=== PATIENT | male | born 1945 | race Caucasian/White ===

== ENCOUNTER → 2017-09-07 | Outpatient (CLI) | payer MEDICARE, OTHER ==
--- NOTE | 2017-09-07 10:45 | Diagnostic Imaging Report ---
PROCEDURE:ABDOMINAL ULTRASOUND COMPARISON:CT abdomen and pelvis 07/19/2016. INDICATIONS:ABDOMINAL AORTIC ANEURYSM FINDINGS: Liver: 13.6 cm. Increased hepatic parenchymal echogenicity. No focal mass. Main portal vein: 1.0 cm. Hepatopedal flow. Gallbladder: Cholecystectomy. Common Bile Duct: 4.0 mm. No echogenic filling defect. Sonographic Harley's sign: Negative. Right kidney: 11.2 cm. No solid or cystic mass, echogenic calculi, or hydronephrosis. Normal parenchymal echogenicity. Left kidney: 10.5 cm. No solid or cystic mass, echogenic calculi, or hydronephrosis. Normal parenchymal echogenicity. Spleen: 9.9 cm. No focal mass. Pancreas: The visualized portions of the pancreas are normal. Inferior vena cava: Normal. Aorta: Infrarenal abdominal aortic aneurysm with greatest transverse diameter measuring 4.6 cm. Ascites: None. CONCLUSION: 1. No acute sonographic abnormality. 2. Hepatic steatosis. 3. Infrarenal abdominal aortic aneurysm. Dictated by: Ulises Parra M.D. on 09/07/2017 at 10:44 Electronically approved by: Ulises Parra M.D. on 09/07/2017 at 10:44
== END ==
LOC: US 07:39
PROVIDERS: ATTEND Internal Medicine
DX: I71.4 Abdominal aortic aneurysm, without rupture (principal)
CPT/HCPCS: 76700

== ENCOUNTER → 2018-01-08 | Outpatient (CLI) | payer MEDICARE, OTHER ==
--- NOTE | 2018-01-08 19:26 | Diagnostic Imaging Report ---
EXAMINATION: Lumbar spine series. CLINICAL HISTORY: Low back pain for 3-4 days COMPARISON: CT lumbar spine 03/17/2011 DISCUSSION: 5 views of the lumbar spine are submitted for interpretation. Five nonrib-bearing lumbar type vertebral bodies are identified. No acute, displaced fractures or subluxation. Minimal grade 1 anterolisthesis of L3 on L2. Degenerative disc changes in the lumbosacral spine, with mild spondylosis. Vertebral body heights are preserved. Increased dextroscoliosis. Bilateral oblique views show no spondylolysis. Facet hypertrophy L4-L5 and L5-S1. Sacroiliac joints are unremarkable. Atherosclerotic calcification of the abdominal aorta. IMPRESSION: 1. No acute abnormalities. 2. Interval increase in dextroscoliosis. 3. Minimal grade 1 anterolisthesis of L3 on L2. The staff physician below has personally reviewed this exam on the date of dictation. Signed by: Dr. Scooby Montes M.D. on 01/08/2018 7:23 PM
== END ==
LOC: RAD 15:51
PROVIDERS: ATTEND Internal Medicine
DX: M54.5 Low back pain (principal)
CPT/HCPCS: 72110

== ENCOUNTER → 2018-09-09 | Outpatient (CLI) | payer MEDICARE, OTHER ==
--- NOTE | 2018-09-09 11:20 | Diagnostic Imaging Report ---
Abdominal ultrasound dated 09/09/2018. History: Abdominal aortic aneurysm Comparison: CT of the lumbar spine dated 03/17/2011. Discussion: Transverse and longitudinal images of the abdomen were obtained demonstrating a liver of normal size measuring 14.0 cm in length. There is increased hepatic echogenicity. The portal vein is patent with hepatopetal flow and is within normal limits measuring 12 mm in diameter. The biliary tree is within normal limits with the common bile duct measuring 8 mm in diameter (size likely secondary to reservoir effect after cholecystectomy). The gallbladder is absent. The sonographic Harley's sign was negative. The kidneys are normal in size and echogenicity bilaterally without evidence of hydronephrosis, stones or mass. The right kidney measures 10.9 x 5.0 x 4.6 cm and the left kidney measures 10.4 x 5.2 x 3.6 cm. The spleen is normal in size and appearance measuring 10.5 cm in length. The pancreatic <head and body> are visualized and are normal in appearance. There is an aneurysm of the infrarenal abdominal aorta with measurements of 4.4 x 4.3 x 4.4 cm. Maximal measurement on the prior remote CT scan of the lumbar spine was 3.7 cm in the 7 1/2 year time frame from the prior study it has only increased 7 mm. There is no evidence of free fluid. IMPRESSION: 1. Infrarenal abdominal aortic aneurysm. 2. Increased echogenicity of the liver. Signed by: Dr. Tigre Corbett DO on 09/09/2018 11:17 AM
== END ==
LOC: US 09:00
PROVIDERS: ATTEND Internal Medicine
DX: I71.4 Abdominal aortic aneurysm, without rupture (principal)
CPT/HCPCS: 76700

== ENCOUNTER → 2019-04-15 | Day surgery (SDC) | payer MEDICARE, OTHER ==
[~2019-04-15] MED LIST: FENTANYL CITRATE/PF 100MCG/2 ML INJ ONE; FISH OIL 1,0001 EAC2 PO; LABETALOL HCL200 MG PO; LEVOTHYROXINE112 MCG PO; LISINOPRIL10 MG PO; MAGNESIUM PO; MIDAZOLAM HCL 2 MG/2 ML VIAL ONE; MULTIVITAMINS1 EAC8 PO; OCUVITE TABLET1 EAC1 PO; OR PHACO EYE KIT ONE; PREOP PHACO EYE KIT ONE; PROBIOTIC & AC1 EACH PO; VITAMIN C500 M1 PO; VITAMIN D400 UNIT PO
--- OUTSIDE RECORDS SUMMARY | 2019-04-15 09:47 | XMS REPORT ---
Author Author [facility] Address Unknown Phone Unavailable Care Team Providers Care Wet End Tester Name Role Phone VENUS GRESHAM Unavailable Unavailable Payers Payer Name Policy Type Policy Number Effective Date Expiration Date Problems This patient has no known problems. Allergies, Adverse Reactions, Alerts Allergy Name Allergy Type Status Severity Reaction(s) Onset Date Inactive Date Treating Clinician Comments No Known Allergies DA Active U 2015-04-09 00:00:00 Medications This patient has no known medications. Results Test Description Test Time Test Comments Text Results Atomic Results Result Comments ALBUMIN 2019-02-03 07:50:00 ALBUMIN (test code=ALB) 3.50 g/dL 3.4-5.0 [id number] 07:50:00* Test Item Value Reference Range Comments PREALBUMIN (test code=PREALB) 27.3 mg/dL 16.0-40.0 CBC W/AUTO [id number] 09:25:00* Test Item Value Reference Range Comments WHITE BLOOD CELL (test code=WBC) 8.43 x10 3/uL 4.5-11.0 RED BLOOD CELL (test code=RBC) 4.90 x10 6/uL 4.00-5.60 HEMOGLOBIN (test code=HGB) 14.3 g/dL 12.5-16.9 HEMATOCRIT (test code=HCT) 42.5 % 37.5-50.7 MEAN CELL VOLUME (test code=MCV) 86.7 fL 81.0-99.0 MEAN CELL HGB (test code=MCH) 29.2 pg 27.0-33.0 MEAN CELL HGB CONCETRATION (test code=MCHC) 33.6 g/dL 33.0-37.0 RED CELL DISTRIBUTION WIDTH CV (test code=RDW) 15.2 % 11.5-14.5 RED CELL DISTRIBUTION WIDTH SD (test code=RDW-SD) 48.8 fL 37.0-54.0 PLATELET COUNT (test code=PLT) 202 x10 3/uL 150-400 MEAN PLATELET VOLUME (test code=MPV) 9.2 fL 7.0-9.0 NEUTROPHIL % (test code=NT%) 78.9 % 56.0-77.0 IMMATURE GRANULOCYTE % (test code=IG%) 0.6 % 0.0-2.0 LYMPHOCYTE % (test code=LY%) 10.4 % 14.0-32.0 MONOCYTE % (test code=MO%) 8.1 % 4.8-9.0 EOSINOPHIL % (test code=EO%) 1.5 % 0.3-3.7 BASOPHIL % (test code=BA%) 0.5 % 0.0-2.0 NUCLEATED RBC % (test code=NRBC%) 0.0 % 0-0 NEUTROPHIL # (test code=NT#) 6.65 x10 3/uL 2.0-7.6 IMMATURE GRANULOCYTE # (test code=IG#) 0.05 x10 3/uL 0.00-0.03 LYMPHOCYTE # (test code=LY#) 0.88 x10 3/uL 1.0-3.8 MONOCYTE # (test code=MO#) 0.68 x10 3/uL 0.1-0.8 EOSINOPHIL # (test code=EO#) 0.13 x10 3/uL 0.0-0.2 BASOPHIL # (test code=BA#) 0.04 x10 3/uL 0.0-0.2 NUCLEATED RBC # (test code=NRBC#) 0.00 x10 3/uL 0.0-0.1 MANUAL DIFF REQUIRED (test code=MDIFF) NO BASIC METABOLIC [id number] 08:02:00* Test Item Value Reference Range Comments SODIUM (test code=NA) 138 mEq/L 134-147 POTASSIUM (test code=K) 3.7 mEq/L 3.4-5.0 CHLORIDE (test code=CL) 105 mEq/L 100-108 CARBON DIOXIDE (test code=CO2) 27 mEq/L 21-33 ANION GAP (test code=GAP) 10 0-20 GLUCOSE (test code=GLU) 79 mg/dL 70-110 BLOOD UREA NITROGEN (test code=BUN) 21 mg/dL 7-18 GLOMERULAR FILTRATION RATE (test code=GFR) 73.0 70-80 Units of measure=ml/min/1.73 m2 CREATININE (test code=CREAT) 1.0 mg/dL 0.6-1.3 CALCIUM (test code=CA) 8.9 mg/dL 8.0-10.5 [id number] 08:02:00* Test Item Value Reference Range Comments MAGNESIUM (test code=MAG) 2.50 mg/dL 1.8-2.4 [id number] 17:26:00* Test Item Value Reference Range Comments GLUBED (test code=GLUBED) 107 MG/DL 70-110 Performed by certified adhesive bonding machine operator at [facility] [id number] 12:52:00* Test Item Value Reference Range Comments GLUBED (test code=GLUBED) 102 MG/DL 70-110 Performed by certified adhesive bonding machine operator at [facility] [id number] 08:43:00* Test Item Value Reference Range Comments GLUBED (test code=GLUBED) 130 MG/DL 70-110 Performed by certified adhesive bonding machine operator at [facility] [id number] 21:11:00* Test Item Value Reference Range Comments GLUBED (test code=GLUBED) 107 MG/DL 70-110 Performed by certified adhesive bonding machine operator at [facility] [id number] 20:19:00* Test Item Value Reference Range Comments GLUBED (test code=GLUBED) 103 MG/DL 70-110 Performed by certified adhesive bonding machine operator at [facility] [id number] 12:37:00* Test Item Value Reference Range Comments GLUBED (test code=GLUBED) 106 MG/DL 70-110 Performed by certified adhesive bonding machine operator at [facility] [id number] 08:39:00* Test Item Value Reference Range Comments GLUBED (test code=GLUBED) 116 MG/DL 70-110 Performed by certified adhesive bonding machine operator at [facility] [id number] 04:55:00* Test Item Value Reference Range Comments GLUBED (test code=GLUBED) 103 MG/DL 70-110 Performed by certified adhesive bonding machine operator at [facility] [id number] 23:19:00* Test Item Value Reference Range Comments GLUBED (test code=GLUBED) 111 MG/DL 70-110 Performed by certified adhesive bonding machine operator at [facility] [id number] 12:20:00* Test Item Value Reference Range Comments GLUBED (test code=GLUBED) 115 MG/DL 70-110 Performed by certified adhesive bonding machine operator at [facility] [id number] 08:11:00* Test Item Value Reference Range Comments GLUBED (test code=GLUBED) 107 MG/DL 70-110 Performed by certified adhesive bonding machine operator at [facility] [id number] 20:44:00* Test Item Value Reference Range Comments GLUBED (test code=GLUBED) 114 MG/DL 70-110 Performed by certified adhesive bonding machine operator at [facility] - CT HEAD/BRAIN W/O [id number] 23:15:00 Name: DIOMEDES HUYNH [facility] : 1945 Age/S: 73 / M [address] [place] [address] Blvd Unit #: [id number] Loc: [place] [address] Phys: Jarocho Smart MD Acct: [id number] Dis Date: Status: ADM IN PHONE #: [phone] Exam Date: 01/24/20192225 FAX #: [phone] Reason: NEURO CHANGES EXAMS: CPT CODE: [id number] CT HEAD/BRAIN W/O CONT 06588 Clinical Indication: Neuro changes. Comparison: Prior CT brain study dated 01/23/[address] brain study done earlier on the same day at 4:39 AM. TECHNIQUE: CT images were obtained from the foramen magnum to the vertex without the use of intravenous contrast on a multidetector CT. Coronal and sagittal reconstructions were obtained. CT imaging performed at this location utilizes radiation dose optimization techniques which include one or more of the following: -Automated exposure control -Adjustment of the mA and/or kV according to patient size -Use of iterative reconstruction [facility] Radiation Dose DLP 452.23 mGy-cm FINDINGS: BR AIN PARENCHYMA: In comparison to the prior CT brain study dated 01/23/2019, there is no significant interval change. Relatively stable appearing lob ulated acute hemorrhage in the right caudate nucleus measuring 1.8 x 1.1 c m with intraventricular extension into the frontal and dependent portion o f the occipital horns. Unchanged ventricular dimensions. No new or incre asing intracranial hemorrhage. ORBITS, MASTOIDS AND PARANASAL SINU SES: The visualized orbits and paranasal sinuses are unremarkable. The mas toid air cells are clear. SKULL: There are no osseous abnormaliti es. If there is further concern for intracranial pathology or acut e stroke, MRI of the brain may be performed for complete assessment. IMPRESSION: In comparison to the prior CT study done earlier on the same day, there is no interval change. Stable acute he morrhage involving the right caudate nucleus with intraventricular exten asia and unchanged ventricular dimensions. Continued follow-up as darvin simon. SL: REENA PAGE 1 Signed Report (CONTINUED) Name: DIOMEDES HUYNH [facility] : 1945 Age/S: 73 / M [address] [place] [address] Unit #: [id number] Loc: [place] [address] Phys: Jarocho Smart MD Acct: [id number] Dis Date: Status: ADM IN PHONE #: [phone] Exam Date: 0 01/24/20192225 FAX #: [phone] Reason: NEURO MARTI ES EXAMS: CPT CODE: [id number] CT HEAD/BRAIN W/O CONT 25668 <Continued> at 7283 Reported and signed by: Nelia Kruger M.D. CC: Jarocho Smart MD; Gabriel Hansen MD Technologist:RT Jaun(R) CTDI: DLP: Trnscb Date/Time: 01/24/2019 (5158) [email or web address] Orig Print D/T: S: 01/24/2019 (3083) PAGE 2 Signed Report [id number] 20:50:00* Test Item Value Reference Range Comments GLUBED (test code=GLUBED) 127 MG/DL 70-110 Performed by certified adhesive bonding machine operator at [facility] [id number] 16:48:00* Test Item Value Reference Range Comments GLUBED (test code=GLUBED) 143 MG/DL 70-110 Performed by certified adhesive bonding machine operator at [facility] [id number] 12:08:00* Test Item Value Reference Range Comments GLUBED (test code=GLUBED) 145 MG/DL 70-110 Performed by certified adhesive bonding machine operator at [facility] HGBA1C%2019-01-24 10:30:00* Test Item Value Reference Range Comments HGBA1C% (test code=HGBA1C%) 5.6 %A1C 4.8-6.0 [id number] 08:05:00* Test Item Value Reference Range Comments GLUBED (test code=GLUBED) 123 MG/DL 70-110 Performed by certified adhesive bonding machine operator at [facility] - CT HEAD/BRAIN W/O [id number] 07:28:00 Name: DIOMEDES HUYNH [facility] : 1945 Age/S: 73 / M [address] [place] [address] Unit #: [id number] Loc: [place] [address] Phys: Patrick Rios DO Acct: [id number] Dis Date: Status: ADM IN PHONE #: [phone] Exam Date: 01/24/2019 0443 FAX #: [phone] Reason: serial CT brain; please perform 5a01/24/19 EXAMS: CPT CODE: [id number] CT HEAD/BRAIN W/O CONT 24531 STUDY: - CT HEAD/BRAIN W/O CONT 01/24/2019 5:00 AM Ordering Physician: Patrick Rios DO Patient Name: DIOMEDES HUYNH MR: [id number] : 1945; Age: 73 years y/o Male Clinical Indication: serial CT brain; please perform 5a01/24/19 Comparison: January 23, 2019 CT head TECHNIQUE: Multiple contiguous transaxial noncontrast CT images were obtained through the head. Coronal and sagittal reformatted images were prepared. DOSE: CT imaging performed at this location utilizes radiation dose optimization technique which includes one or more of the followin) Automated exposure control; 2) Adjustment of the mA and/or kV according to patient's size; 3) Use of iterative reconstruction techniques. DLP (mGy-cm): 419 FINDINGS: BRAIN PARENCHYMA: Mild to moderate diffuse atrophy is present associated with mild nonspecific periventricular low attenuation most consistent with old microangiopathic ischemic change. Vascular calcifications in the carotid siphons and intradural vertebral arteries. 1.9 x 1.1 cm intraparenchymal hemorr jj centered in the right caudate head with interventricular extension in volving the right lateral ventricle and posterior left lateral ventricle VENTRICLES: The lateral ventricles, third ventricle, fourth ventric le, and basilar cisterns are appropriate for degree of atrophy present. PARANASAL SINUSES: The visualized portions of the paranasal sinuses are clear. MASTOIDS: Clear. ORBITS: The visual ized portions of the orbits are normal. SOFT TISSUES: subcutaneous inclusion cyst in the occipital region PAGE 1 Signed Report (CONTINUED) Name: DIOMEDES HUYNH [facility] : 1945 Age/S: 73 / M [address] [place], [place] [address]vd Unit #: [id number] Loc: [place] [address] Phys: Patrick Rios DO Acct: [id number] Dis Date: Status: ADM IN PHONE #: [phone] Exam Date: 2018 FAX #: [phone] Reason: serial CT brain; please perform 5am 01/24/19 EXAMS: CPT CODE: [id number] CT HEAD/BRAIN W/O CONT 35128 <Continued> SKULL: No acute fracture or suspicious osseous lesion. IMPRESSION: 2. 1. No progressive intracranial hemorrhage. 3. 2. Right basal ganglia intraparietal hemorrhage with intraventricular extension, as detailed above. [id number] at 0728 Reported and signed by: Oscar Contreras M.D. CC: Patrick Rios DO Technologist:Liane Dela Cruz, RT(R)(CT) CTDI: DLP: Trnscb Date/Time: 01/24/2019 (727) t.[email or web address] Orig Print D/T: S: 01/24/2019 (0731) PAGE 2 Signed Report CBC W/AUTO [id number] 07:06:00* Test Item Value Reference Range Comments WHITE BLOOD CELL (test code=WBC) 9.20 x10 3/uL 4.5-11.0 RED BLOOD CELL (test code=RBC) 5.02 x10 6/uL 4.00-5.60 HEMOGLOBIN (test code=HGB) 14.2 g/dL 12.5-16.9 HEMATOCRIT (test code=HCT) 44.0 % 37.5-50.7 MEAN CELL VOLUME (test code=MCV) 87.6 fL 81.0-99.0 MEAN CELL HGB (test code=MCH) 28.3 pg 27.0-33.0 MEAN CELL HGB CONCETRATION (test code=MCHC) 32.3 g/dL 33.0-37.0 RED CELL DISTRIBUTION WIDTH CV (test code=RDW) 15.0 % 11.5-14.5 RED CELL DISTRIBUTION WIDTH SD (test code=RDW-SD) 47.8 fL 37.0-54.0 PLATELET COUNT (test code=PLT) 192 x10 3/uL 150-400 MEAN PLATELET VOLUME (test code=MPV) 8.8 fL 7.0-9.0 NEUTROPHIL % (test code=NT%) 84.2 % 56.0-77.0 IMMATURE GRANULOCYTE % (test code=IG%) 0.5 % 0.0-2.0 LYMPHOCYTE % (test code=LY%) 8.6 % 14.0-32.0 MONOCYTE % (test code=MO%) 6.3 % 4.8-9.0 EOSINOPHIL % (test code=EO%) 0.1 % 0.3-3.7 BASOPHIL % (test code=BA%) 0.3 % 0.0-2.0 NUCLEATED RBC % (test code=NRBC%) 0.0 % 0-0 NEUTROPHIL # (test code=NT#) 7.74 x10 3/uL 2.0-7.6 IMMATURE GRANULOCYTE # (test code=IG#) 0.05 x10 3/uL 0.00-0.03 LYMPHOCYTE # (test code=LY#) 0.79 x10 3/uL 1.0-3.8 MONOCYTE # (test code=MO#) 0.58 x10 3/uL 0.1-0.8 EOSINOPHIL # (test code=EO#) 0.01 x10 3/uL 0.0-0.2 BASOPHIL # (test code=BA#) 0.03 x10 3/uL 0.0-0.2 NUCLEATED RBC # (test code=NRBC#) 0.00 x10 3/uL 0.0-0.1 MANUAL DIFF REQUIRED (test code=MDIFF) NO COMPREHENSIVE METABOLIC [id number] 06:36:00* Test Item Value Reference Range Comments SODIUM (test code=NA) 137 mEq/L 134-147 POTASSIUM (test code=K) 3.8 mEq/L 3.4-5.0 CHLORIDE (test code=CL) 103 mEq/L 100-108 CARBON DIOXIDE (test code=CO2) 29 mEq/L 21-33 ANION GAP (test code=GAP) 9 0-20 GLUCOSE (test code=GLU) 126 mg/dL 70-110 BLOOD UREA NITROGEN (test code=BUN) 16 mg/dL 7-18 GLOMERULAR FILTRATION RATE (test code=GFR) 65.4 70-80 Units of measure=ml/min/1.73 m2 CREATININE (test code=CREAT) 1.1 mg/dL 0.6-1.3 TOTAL PROTEIN (test code=PROT) 7.1 g/dL 6.4-8.2 ALBUMIN (test code=ALB) 3.80 g/dL 3.4-5.0 CALCIUM (test code=CA) 9.0 mg/dL 8.0-10.5 BILIRUBIN TOTAL (test code=BILT) 0.80 mg/dL 0.0-1.0 SGOT/AST (test code=AST) 17 IUnit/L 15-37 SGPT/ALT (test code=ALT) 26 IUnit/L 15-65 ALKALINE PHOSPHATASE TOTAL (test code=ALKP) 68 IUnit/L 20-125 LIPID PROFILE (CORONARY RISK)2019-01-24 06:36:00* Test Item Value Reference Range Comments TRIGLYCERIDES (test code=TRIG) 126 mg/dL 40-150 CHOLESTEROL (test code=CHOL) 169 mg/dL <200 CHOLESTEROL/HDL RATIO (test code=CHOLHDL) 4.02 RATIO 3.43-4.97 RISK ASSOCIATED WITH CHOL/HDL RATIOS: RISK MALE FEMALE1/2 AVERAGE 3.43 3.27AVERAGE 4.97 4.442X AVERAGE 9.55 7.053X AVERAGE 23.39 11.04 NOTE THAT THE REFERENCE VALUE IS RELATEDTO RISK LEVELS RECOMMENDED BY THE NATL.HEART, LUNG, AND BLOOD INST. HDL CHOLESTEROL (test code=HDL) 42.0 mg/dL 32-72 LIPOPROTEIN LDL (test code=LDL) 118 mg/dL 0-100 <100 [id number] NEAR OPTIMAL/ABOVE [id number] HIGH>PJ=736 VERY HIGH*Guidelines provided by the National Cholesterol EducationProgram Adult Treatment Panel III PROTHROMBIN [id number] 06:32:00* Test Item Value Reference Range Comments PROTHROMBIN TIME PATIENT (test code=PTP) 13.0 SECONDS 9.3-12.9 INTERNATIONAL NORMAL RATIO (test code=INR) 1.2 0.8-1.2 TARGET INR BY INDICATION Indication INR1. Prophylaxis of venous thrombosis 2.0 - 3.0 (orthopedic surgery), Prophylaxis of venous thrombosis (other than high-risk surgery), Treatment of Deep Vein Thrombosis/Pulmonary Embolism, Prevention of systemic embolism - Tissue heart valves, Acute Myocardial Infarction (to prevent systemic embolism), Valvular heart disease, Atrial Fibrillation, Bileaflet mechanical valve in aortic position.2. Mechanical prosthetic valves (high risk), 2.5 - 3.5 Presence of Lupus Anticoagulant or Antiphospholipid Antibodies, Prevention of systemic embolism - Acute Myocardial Infarction (to prevent recurrent infarct). THROMBOPLASTIN TIME [id number] 06:32:00* Test Item Value Reference Range Comments THROMBOPLASTIN TIME PARTIAL (test code=PTT) 29.4 Seconds 25.0-39.5 Therapeutic Range: 50.4 - 88.3 Seconds Effective 10/29/2018 - CT HEAD/BRAIN W/O [id number] 22:32:00 Name: DIOMEDES HUYNH [facility] : 1945 Age/S: 73 / M [address] [place] [address] Unit #: [id number] Loc: [place] [address] Phys: Patrick Rios DO Acct: [id number] Dis Date: Status: REG ER PHONE #: [phone] Exam Date: 01/23/2019 220 FAX #: [phone] Reason: headache nausea vomiting EXAMS: CPT CODE: [id number] CT HEAD/BRAIN W/O CONT 10286 Clinical Indication: Headache nausea vomiting. Comparison: None TECHNIQUE: CT images were obtained from the foramen magnum to the vertex without the use of intravenous contrast on a multidetector CT. Coronal and sagittal reconstructions were obtained. CT imaging performed at this location utilizes radiation dose optimization techniques which include one or more of the following: - Automated exposure control -Adjustment of the mA and/or kV according to patient size -Use of iterative reconstruction technique CT Radiation Dose DLP 629.55 mGy-cm FINDINGS: BRAIN PARENCHYMA: Acute lobulated intraparenchymal hemorrhage in the right caudate nucleus measuring 1.8 x 1.1 cm with intraventricular extension into the ipsilateral frontal horn of the right lateral ventricle and bilateral occipital horns, right more than the left. No significant mass effect or midline shift. There is generalized brain parenchymal atrophy related to the patient's age. Mild nonspecific periventricular white matter disease changes are noted. Atherosclerotic calcifications are present within the carotid siphons and distal vertebral arteries. There are no focal mass lesions on this noncontrast head CT. There is no mass effect, midline shif t or edema. The pineal, sellar, brainstem, cerebellum and skull base regions appear unremarkable.The basilar cisterns are normal. OR BITS, MASTOIDS AND PARANASAL SINUSES: The visualized orbits and paranasal sinuses are unremarkable. The mastoid air cells are clear. SKULL: There are no calvarial abnormalities seen. If there is further co ncern for intracranial pathology or acute stroke, MRI of the brain may be performed for complete assessment. IMPRESSION: 1. Acute lobulated intraparenchymal hemorrhage in the right caudate nu cleus with intraventricular extension. No hydrocephalus. No mass effec t or midline shift. This is likely hypertensive in etiology. Close fol low-up as warranted. 2. Chronic age-related and small vessel ischemic changes without PAGE 1 Signed Report (CONTINUED) Name: DIOMEDES HUYNH [facility] : 1945 Age/S: 73 / M [address] [place] [address] B lvd Unit #: [id number] Loc: [place] [address] Phys: Patrick Rios DO Acct: [id number] Dis Date: Status: REG ER PHONE #: [phone] Exam Date: 01/23/2019 2203 FAX #: [phone] Reason: headache nausea vomiting EXAMS: CPT CODE: [id number] CT HEAD/BRAIN W/O CONT 68258 < Continued> mass, hemorrhage or subacute stroke. The above findings were informed by Dr. Kruger to Physician: Patrick Rios DO on 01/23/2019 at 10:20 PM via telephone. SL: APATIL-H at 2817 Reported and signed by: Nelia Kruger M.D. CC: Patrick Rios DO Technologist:Anaid Bustamante RT(R) CTDI: DLP: Trnscb Date/Time: 01/23/2019 (2231) [email or web address] Orig Print D/T: S: 01/23/2019 (8840) PAGE 2 Signed Report - XR CHEST 1 [id number] 22:29:00 FAX: Yana Patrick Rios DO [phone] [place]: St: REG Name: DIOMEDES PETE [facility] : [birth year] Age/S: 73/M [address] [place] [address] Unit #: [id number] Loc: [place] [address] Phys: Patrick Rios DO Acct: [id number] Dis Date: Status: REG ER PHONE #: [phone] Exam Date: 01/23/20192208 FAX #: [phone] Reason: Chest Pain EXAMS: CPT CODE: [id number] XR CHEST 1 V 43108 XR CHEST 1 VIEW HIST ORY: Chest Pain. COMPARISON: None. FINDINGS: The w[place] gs are clear. The heart and vascular markings are normal. No pleural abnor mality. The bones are intact. IMPRESSION: No active process. SL: LS-H at 1246 Reported and s igned by: Philipp Mcdaniel M.D. CC: Patrick Rios DO Technologist: RT Kwan(R)(M) Trnscrd Date/Time/By: 01/23/2019 (6922) : By: [email or web address] Orig Print D/T: S: 01/23/2019 (9392) PAGE 1 Signed Report BASIC METABOLIC PANEL 2019-01-23 22:23:00* Test Item Value Reference Range Comments SODIUM (test code=NA) 137 mEq/L 134-147 POTASSIUM (test code=K) 4.1 mEq/L 3.4-5.0 CHLORIDE (test code=CL) 101 mEq/L 100-108 CARBON DIOXIDE (test code=CO2) 30 mEq/L 21-33 ANION GAP (test code=GAP) 10 0-20 GLUCOSE (test code=GLU) 133 mg/dL 70-110 BLOOD UREA NITROGEN (test code=BUN) 17 mg/dL 7-18 GLOMERULAR FILTRATION RATE (test code=GFR) 65.4 70-80 Units of measure=ml/min/1.73 m2 CREATININE (test code=CREAT) 1.1 mg/dL 0.6-1.3 CALCIUM (test code=CA) 8.7 mg/dL 8.0-10.5 [id number] 22:23:00* Test Item Value Reference Range Comments TROPONIN-I (test code=TROPI) < 0.015 ng/mL 0.000-0.045 Negative: <=0.045 Positive: >=0.046 Correlation with serial results, other cardiac markers andclinical findings is necessary to determine the clinicalsignificance of this result. Results using different methodologies should not be comparedto one another as quantitative results may vary by method. CBC W/AUTO [id number] 22:04:00* Test Item Value Reference Range Comments WHITE BLOOD CELL (test code=WBC) 10.00 x10 3/uL 4.5-11.0 RED BLOOD CELL (test code=RBC) 5.11 x10 6/uL 4.00-5.60 HEMOGLOBIN (test code=HGB) 14.5 g/dL 12.5-16.9 HEMATOCRIT (test code=HCT) 44.2 % 37.5-50.7 MEAN CELL VOLUME (test code=MCV) 86.5 fL 81.0-99.0 MEAN CELL HGB (test code=MCH) 28.4 pg 27.0-33.0 MEAN CELL HGB CONCETRATION (test code=MCHC) 32.8 g/dL 33.0-37.0 RED CELL DISTRIBUTION WIDTH CV (test code=RDW) 14.7 % 11.5-14.5 RED CELL DISTRIBUTION WIDTH SD (test code=RDW-SD) 47.1 fL 37.0-54.0 PLATELET COUNT (test code=PLT) 181 x10 3/uL 150-400 MEAN PLATELET VOLUME (test code=MPV) 8.6 fL 7.0-9.0 NEUTROPHIL % (test code=NT%) 86.7 % 56.0-77.0 IMMATURE GRANULOCYTE % (test code=IG%) 0.7 % 0.0-2.0 LYMPHOCYTE % (test code=LY%) 7.0 % 14.0-32.0 MONOCYTE % (test code=MO%) 5.2 % 4.8-9.0 EOSINOPHIL % (test code=EO%) 0.0 % 0.3-3.7 BASOPHIL % (test code=BA%) 0.4 % 0.0-2.0 NUCLEATED RBC % (test code=NRBC%) 0.0 % 0-0 NEUTROPHIL # (test code=NT#) 8.67 x10 3/uL 2.0-7.6 IMMATURE GRANULOCYTE # (test code=IG#) 0.07 x10 3/uL 0.00-0.03 LYMPHOCYTE # (test code=LY#) 0.70 x10 3/uL 1.0-3.8 MONOCYTE # (test code=MO#) 0.52 x10 3/uL 0.1-0.8 EOSINOPHIL # (test code=EO#) 0.00 x10 3/uL 0.0-0.2 BASOPHIL # (test code=BA#) 0.04 x10 3/uL 0.0-0.2 NUCLEATED RBC # (test code=NRBC#) 0.00 x10 3/uL 0.0-0.1 MANUAL DIFF REQUIRED (test code=MDIFF) NO US ABDOMEN [id number] 10:52:00 [place] [id number] Patient Name: DIOMEDES HUYNH MR #: [id number] : 1945 Age/Sex: 73/M Req #: [id number] [facility] Physician: Ordered by: VENUS GRESHAM MD Report #: [id number] Location: US Room/Bed: Procedure: [id number] US/US ABDOMEN COMPLETE Exam Date: 09/09/18 Exam Time: 0935 REPORT STATUS: Signed Abdominal ultrasound dated 09/09/2018. History: Abdominal aortic aneurysm Ap rison: CT of the lumbar spine dated 03/17/2011. Discussion: Transverse and lo ngitudinal images of the abdomen were obtained demonstrating a liver of normal size measuring 14.0 cm in length. There is increased hepatic echogenicity. The portal vein is patent with hepatopetal flow and is within normal limits justina uring 12 mm in diameter. The biliary tree is within normal limi ts with the common bile duct measuring 8 mm in diameter (size likely secondary to reservoir effect after cholecystectomy). The gallbladder is absent. The so nographic Harley's sign was negative. The kidneys are normal i n size and echogenicity bilaterally without evidence of hydronephrosis, stones or mass. The right kidney measures 10.9 x 5.0 x 4.6 cm and the left kidney me asures 10.4 x 5.2 x 3.6 cm. The spleen is normal in size and appearance measur ing 10.5 cm in length. The pancreatic <head and body> are visualized and are normal in appearance. There is an aneurysm of the infrarenal abdominal aorta with measurements of 4.4 x 4.3 x 4.4 cm. Maximal measurement on the prior remote CT scan of the lumbar spine was 3.7 cm in the 7 1/2 year time frame from the prior study it has only increased 7 mm. There is no evidence of free fluid. IMPRESSION: 1. Infrarenal abdominal aortic aneurysm. 2. Increased echogenicity of the liver. Signed by: Dr. Tigre Levin DO on 09/09/2018 11:17 AM Dictated By: TIGRE LEVIN DO 16 Transcribed By: AUGUSTO on 09/09/181116 COPY TO: VENUS GRESHAM MD SP LUMBAR, COMPLETE MIN [id number] 19:20:00 [place] [address] Patient Name: DIOMEDES HUYNH MR #: [id number] : 1945 Age/Sex: 72/M Req #: [id number] Adm Physician: Ordered by: VENUS GRESHAM MD Report #: [id number] Location: [facility] Room/Bed: Procedure: [id number] DX/SP LUMBAR, COMPLETE MIN 4VW Exam Date: 01/08/18 Exam Time: 1620 REPORT STA TUS: Signed EXAMINATION: Lumbar spine series. CLINICAL HISTORY: Low back pain for 3-4 days COMPARISON: CT lumbar spine 03/17/2011 DISCUSSION: 5 views of the lumbar spine are submitted for interpretation. Five nonrib-duncan ring lumbar type vertebral bodies are identified. No acute, displaced fracture s or subluxation. Minimal grade 1 anterolisthesis of L3 on L2. Degenerative disc changes in the lumbosacral spine, with mild spondylosis. Vertebral body heights are preserved. Increased dextroscoliosis. Bilateral oblique views s how no spondylolysis. Facet hypertrophy L4-L5 and L5-S1. Sacroiliac shashank nts are unremarkable. Atherosclerotic calcification of the abdominal aorta. IMPRESSION: 1. No acute abnormalities. 2. Interval increase in dex troscoliosis. 3. Minimal grade 1 anterolisthesis of L3 on L2. The sta f physician below has personally reviewed this exam on the date of dictation. Signed by: Dr. Scooby Webber M.D. on 01/08/2018 7:23 PM Dictated By: SCOOBY WEBBER MD 22 Transcribed By: AUGUSTO on 01/08/181922 COPY TO: VENUS SILVA MD US ABDOMEN COMPLETE [place] [address] Patient Name: DIOMEDES HUYNH MR #: [id number] : 1945 Age/Sex: 72/M Req #: [id number] Adm Physician: Ordered by: VENUS GRESHAM MD Report #: [id number] Location: US Room/Bed: Procedure: [id number] US/US ABDOMEN COMPLETE Exam Kunal e: 09/07/17 Exam Time: 0813 REPORT STATUS: Sign ed PROCEDURE: ABDOMINAL ULTRASOUND COMPARISON: CT abdomen and pelvis 07/19/2016. INDICATIONS: ABDOMINAL AORTIC ANEURYSM FINDINGS: Live r: 13.6 cm. Increased hepatic parenchymal echogenicity. No focal mass. Renetta n portal vein: 1.0 cm. Hepatopedal flow. Gallbladder: Cholecystectomy. Common Bile Duct: 4.0 mm. No echogenic filling defect. Sonographic Harley's s ign: Negative. Right kidney: 11.2 cm. No solid or cystic mass, echogenic c alculi, or hydronephrosis. Normal parenchymal echogenicity. Left kidney: 10 .5 cm. No solid or cystic mass, echogenic calculi, or hydronephrosis. Normal parenchymal echogenicity. Spleen: 9.9 cm. No focal mass. Pancreas: The visualized portions of the pancreas are normal. Inferior vena cava: Normal . Aorta: Infrarenal abdominal aortic aneurysm with greatest transverse diam eter measuring 4.6 cm. Ascites: None. CONCLUSION: 1. No acute s onographic abnormality. 2. Hepatic steatosis. 3. Infrarenal abdominal aortic aneurysm. Dictated by: Jorge Aguilar M.D. on 09/07/2017 at 10:44 Electronically approved by: Jorge Aguilar M.D. on 09/07/2017 at 10:44 Dictated By: JORGE AGUILAR MD 1044 Transcribed By: BARRY on 09/07/17 1044 COPY TO: VENUS CORTES MD
[2019-04-15 12:10] VITALS: BP 125/67
== END | disposition home or self-care (01) ==
LOC: OR 09:33
PROVIDERS: ATTEND Ophthalmology
DX: H25.12 Age-related nuclear cataract, left eye (principal); I10 Essential (primary) hypertension; E03.9 Hypothyroidism, unspecified; Z87.891 Personal history of nicotine dependence
CPT/HCPCS: 66984; J2250; J3010

== ENCOUNTER → 2020-04-15 | Outpatient (CLI) | payer MEDICARE, OTHER ==
[~2020-04-15] MED LIST changes: -FENTANYL CITRATE/PF 100MCG/2 ML INJ ONE; -MIDAZOLAM HCL 2 MG/2 ML VIAL ONE; -OR PHACO EYE KIT ONE; -PREOP PHACO EYE KIT ONE
--- NOTE | 2020-04-15 09:39 | Diagnostic Imaging Report ---
EXAM: US ABDOMEN COMPLETE DATE: 04/15/2020 8:04 AM INDICATION: ^[id number] ^[id number] ^ABD AORTIC ANEURYSM W/O RUPTURE COMPARISON: 09/09/2018 TECHNIQUE: Transverse and longitudinal starks scale and color doppler sonographic images of the abdomen were obtained. FINDINGS: LIVER 12.4 cm in the right midclavicular line. Diffusely increased echogenicity of the liver is noted with normal contour, no masses. SPLEEN 10.3 cm in maximum diameter. Normal echogenicity, no masses. GALLBLADDER Surgically absent BILE DUCTS No intra nor extra-hepatic biliary dilation. Common bile duct measures 0.4cm PANCREAS: Visualized portions are normal. RIGHT KIDNEY: 10.5 cm Echogenicity: Normal Collecting System: No hydronephrosis Stones: None Cyst/Mass: None LEFT KIDNEY: 10.3 cm Echogenicity: Normal Collecting System: No hydronephrosis Stones: None Cyst/Mass: None VESSELS: Aorta: Distal aorta measures up to 5 cm in diameter. Inferior Vena Cava: Visualized portions are normal Main Portal Vein: 0.8 cm, normal size with hepatopetal flow. FREE FLUID: None IMPRESSION: 1. Infrarenal abdominal aortic aneurysm measuring up to approximately 5 cm in diameter. 2. Stable hepatic steatosis. 3. Stable postsurgical change of cholecystectomy. Signed by: Jared Locke MD on 04/15/2020 9:36 AM
--- NOTE | 2020-04-15 09:42 | Diagnostic Imaging Report ---
HISTORY : Infrarenal abdominal aortic aneurysm without rupture. COMPARISON : Prior ultrasound and CT dated 2016. Comment: Bladder is identified with 84 mL volume. The jets are not well visualized, nonspecific. The prostate is not well visualized. No suspicious pelvic mass is identified. IMPRESSION : Unremarkable limited male with abdominal pelvic ultrasound. Signed by: Jared Locke MD on 04/15/2020 9:39 AM
== END ==
LOC: US 03-26 11:55
PROVIDERS: ATTEND Internal Medicine
DX: I71.4 Abdominal aortic aneurysm, without rupture (principal)
CPT/HCPCS: 76700; 76856

== ENCOUNTER → 2020-09-10 | Outpatient (CLI) | payer MEDICARE, OTHER | LOC: CARD 09:30 | PROVIDERS: ATTEND Internal Medicine | DX: R60.9 Edema, unspecified (principal) | CPT/HCPCS: 93925 ==